=== PATIENT | male | born 1970 | race African-American/Black ===

== ENCOUNTER 2018-01-16 08:17 | Emergency (ER) | payer MEDICAID ==
[~2018-01-16] VITALS: Ht 177.8 cm; Wt 77.1 kg
[2018-01-16 08:17] VITALS: BP 123/79
== END 2018-01-16 08:55 | disposition home or self-care (01) ==
LOC: ER 08:20
DX: M54.9 Dorsalgia, unspecified (principal); G89.29 Other chronic pain; F31.9 Bipolar disorder, unspecified; F17.200 Nicotine dependence, unspecified, uncomplicated
CPT/HCPCS: 99282; A4606; Z7610

== ENCOUNTER 2018-02-11 22:05 | Emergency (ER) | payer MEDICAID ==
[~2018-02-11] VITALS: Ht 182.9 cm; Wt 90.7 kg
[2018-02-11 22:32] VITALS: BP 109/90
[2018-02-11] MEDS ORDERED: LIDOCAINE 0.5% HCL 50 ML VIAL ONE (23:59)
== END 2018-02-12 00:47 | disposition home or self-care (01) ==
LOC: ER 22:11
DX: D17.9 Benign lipomatous neoplasm, unspecified (principal); L02.412 Cutaneous abscess of left axilla; F31.9 Bipolar disorder, unspecified; F17.200 Nicotine dependence, unspecified, uncomplicated
CPT/HCPCS: 10060; 99283; A4606; A6403; A6407; J3490; Z7610

== ENCOUNTER 2021-04-04 11:11 | Emergency (ER) | payer OTHER ==
[~2021-04-04] VITALS: Ht 177.8 cm; Wt 76.2 kg
--- NOTE | 2021-04-04 11:40 | NUR ---
awaiting for ER provider to see the patient
--- NOTE | 2021-04-04 11:40 | NUR ---
back pain x 2 days
[2021-04-04] MEDS ORDERED: KETOROLAC TROMETHAMINE INJ 30 MG/ML VIAL IM ONE (12:00)
[2021-04-04] MEDS ORDERED: KETOROLAC TROMETHAMINE 15 MG/ML VIAL ONE (12:03)
--- NOTE | 2021-04-04 12:08 | NUR ---
IM toradol given as ordered
--- NOTE | 2021-04-04 12:08 | NUR ---
x ray done at bedside
--- NOTE | 2021-04-04 13:03 | NUR ---
Patient discharged to home in stable condition. Written and verbal after care instructions given. Patient verbalizes understanding of instruction.
[2021-04-04 13:05] VITALS: BP 115/67
== END 2021-04-04 13:05 | disposition home or self-care (01) ==
LOC: ER 11:17
DX: M54.16 Radiculopathy, lumbar region (principal); F32.9 Major depressive disorder, single episode, unspecified; F12.90 Cannabis use, unspecified, uncomplicated
CPT/HCPCS: 72100; 96372; 99283; J1885

== ENCOUNTER 2025-01-02 10:08 | Emergency (ER) | payer OTHER ==
[~2025-01-02] VITALS: Ht 177.8 cm; Wt 79.4 kg
[2025-01-02 10:49] LABS: BASOPHILS # (AUTO) 0.1 K/uL (0.0-0.2); BASOPHILS % (AUTO) 1.7 % (0.0-2.0); EOSINOPHILS # (AUTO) 0.4 K/uL (0.0-0.7); EOSINOPHILS % (AUTO) 8.5 % (0.0-6.0); HEMATOCRIT 43 % (39-51); HEMOGLOBIN 14.4 g/dL (13.5-17.5); LYMPHOCYTES % (AUTO) 19.7 % (20.0-44.0); MEAN CORPUSCULAR HEMOGLOBIN 29 PG (26.0-33.0); MEAN CORPUSCULAR HGB CONC 34 g/dl (31.0-36.0); MEAN CORPUSCULAR VOLUME 86 fL (80-96); MONOCYTES # (AUTO) 0.5 K/uL (0.1-1.30); MONOCYTES % (AUTO) 9.4 % (2.0-12.0); NEUTROPHILS # (AUTO) 3.1 K/uL (1.8-8.9); NEUTROPHILS % (AUTO) 60.7 % (43.0-81.0); PLATELET COUNT (AUTO) 196 K/uL (150-450); RED CELL DISTRIBUTION WIDTH 14.7 % (11.5-15.0); WHITE BLOOD COUNT (AUTO) 5.2 K/uL (4.3-11.0)
[2025-01-02 10:56] LABS: CALCIUM, SERUM 8.8 mg/dL (8.5-10.1); CARBON DIOXIDE 30 mmol/L (21-32); CHLORIDE 108 mmol/L (98-107); CREATININE 1.2 mg/dL (0.6-1.3); GLUCOSE 88 mg/dL (74-106); POTASSIUM 3.8 mmol/L (3.5-5.1); SODIUM SERUM 140 mmol/L (136-145); UREA NITROGEN, BLOOD 13 mg/dL (7-18)
[2025-01-02 11:09] LABS: NT-PRO BNP 70 pg/mL (0-125)
[2025-01-02 12:18] VITALS: BP 122/76; TEMP 98.8; O2SAT 97
== END 2025-01-02 12:19 | disposition home or self-care (01) ==
LOC: ER 10:16
DX: R00.2 Palpitations (principal); R07.9 Chest pain, unspecified; F12.90 Cannabis use, unspecified, uncomplicated; F17.200 Nicotine dependence, unspecified, uncomplicated; F31.9 Bipolar disorder, unspecified
CPT/HCPCS: 36415; 71045-TC; 80048-TC; 83880; 84443-TC; 84484-TC; 85025-TC